=== PATIENT | female | born 1960 | race American Indian/Alaskan Native ===

== ENCOUNTER 2016-11-29 00:52 | Emergency (ER) | payer OTHER ==
[2016-11-29 01:48] LABS: Basophils % (Auto) 0.8 % (0.0-1.8); Hematocrit 39.7 % (30.3-42.9); Hemoglobin 13.1 gm/dl (10.1-14.3); Mean Corpuscular HGB Conc 33 % (30-34); Mean Corpuscular Hemoglobin 29 pg (28-32); Mean Corpuscular Volume 88 fl (79-97); Platelet Count 179 K/mm3 (140-440); Red Blood Count 4.52 M/mm3 (3.65-5.03); Red Cell Distribution Width 14.6 % (13.2-15.2); White Blood Count 6.3 K/mm3 (4.5-11.0)
[2016-11-29 02:03] LABS: BUN/Creatinine Ratio 12.5; Calcium 9.4 mg/dL (8.4-10.2); Potassium 3.6 mmol/L (3.6-5.0)
[2016-11-29] MEDS ORDERED: DELTASONE PO ONE (03:07)
[2016-11-29] MEDS ORDERED: DUONEB 0.5 MG-3 MG/3 ML SOLN IH ONE (03:07)
[2016-11-29] MEDS ORDERED: NACL 0.9% 1000 ML 1,000 ML IV ONE (03:07)
[2016-11-29] MEDS ORDERED: PROVENTIL IH ONE (03:07)
--- NOTE | 2016-11-29 03:10 | Emergency Department Report ---
ED Shortness of Breath HPI - General Chief Complaint: Upper Respiratory Infection Stated Complaint: COUGH, CONGESTION Time Seen by Provider: 11/29/16 02:57 Source: patient Mode of arrival: Ambulatory Limitations: No Limitations - History of Present Illness Initial Comments: Pt is a 56-year-old woman with a history of hypertension presenting with cough, dyspnea, sore throat for the past 3 weeks. Patient reports [facility] and prescribed a week's course of amoxicillin and inhaler with no relief. Patient then followed up with a primary care provider and was given a Z-Ede, but still reports no relief. Associated right flank pain with coughing, however, patient reports the pain was there prior to her URI sx. Otherwise no fevers, chills, FONSECA, NVD, chest pain, abd pain, travel, trauma, or sick contacts. MD Complaint: shortness of breath, cough, chest pain -: month(s) (1) - Related Data Previous Rx's Medication Instructions Recorded Last Taken Type predniSONE [Deltasone] 50 mg PO QDAY #5 tab 11/29/16 Unknown Rx Allergies Allergy/AdvReac Type Severity Reaction Status Date / Time codeine Allergy Vomiting Verified 11/29/16 01:01 ED Review of Systems ROS: Stated complaint: COUGH, CONGESTION Other details as noted in HPI Comment: All other systems reviewed and negative ED Past Medical Hx - Past Medical History Previous Medical History?: Yes Hx Hypertension: Yes - Surgical History Past Surgical History?: Yes Additional Surgical History: HEMMORHOIDECTOMY - Social History Smoking Status: Never Smoker Substance Use Type: None - Medications Home Medications: Home Medications Medication Instructions Recorded Confirmed Last Taken Type predniSONE [Deltasone] 50 mg PO QDAY #5 tab 11/29/16 Unknown Rx ED Physical Exam - General Limitations: No Limitations General appearance: alert, in no apparent distress - Head Head exam: Present: atraumatic, normocephalic - Eye Eye exam: Present: normal appearance - ENT ENT exam: Present: mucous membranes moist - Neck Neck exam: Present: normal inspection - Respiratory Respiratory exam: Present: wheezes, decreased breath sounds. Absent: respiratory distress - Cardiovascular Cardiovascular Exam: Present: regular rate, normal rhythm. Absent: systolic murmur, diastolic murmur, rubs, gallop - GI/Abdominal GI/Abdominal exam: Present: soft, normal bowel sounds. Absent: distended, tenderness, guarding, rebound - Extremities Exam Extremities exam: Present: normal inspection - Back Exam Back exam: Present: normal inspection - Neurological Exam Neurological exam: Present: alert, oriented X3 - Psychiatric Psychiatric exam: Present: normal affect, normal mood - Skin Skin exam: Present: warm, dry, intact, normal color. Absent: rash ED Course Vital Signs 11/29/16 11/29/16 11/29/16 01:01 02:25 03:45 Temperature 97.9 F Pulse Rate 82 77 Pulse Rate [ 75 Posterior Bilateral Bases ] Respiratory 18 18 Rate Respiratory 20 Rate [Posterior Bilateral Bases] Blood Pressure 151/84 Blood Pressure 142/83 [Left] O2 Sat by Pulse 98 98 Oximetry 11/29/16 11/29/16 11/29/16 04:02 04:57 06:15 Temperature 98.4 F Pulse Rate 99 H 95 H Pulse Rate [ 78 Posterior Bilateral Bases ] Respiratory 20 18 Rate Respiratory 20 Rate [Posterior Bilateral Bases] Blood Pressure Blood Pressure 156/81 143/86 [Left] O2 Sat by Pulse 98 Oximetry ED Medical Decision Making - Lab Data Result diagrams: 11/29/16 01:29 11/29/16 01:29 - Medical Decision Making Results discussed with the patient, instructed her to follow up with her PMD, continue the albuterol inhaler q4hr for wheezing and to take the prednisone for the next 5 days Critical care attestation.: If time is entered above; I have spent that time in minutes in the direct care of this critically ill patient, excluding procedure time. ED Disposition Clinical Impression: Dyspnea, Cough, URI (upper respiratory infection) Disposition: DISCHARGED TO HOME OR SELFCARE Is pt being admited?: No Condition: Stable Instructions: Upper Respiratory Infection (ED), Dyspnea (ED), Cold Symptoms (ED ) Prescriptions: predniSONE [Deltasone] 50 mg PO QDAY #5 tab Referrals: PRIMARY CARE, [Primary Care Provider] - 3-5 Days
[2016-11-29 05:12] LABS: Bilirubin,Urine NEG (Negative); Blood,Urine NEG (Negative); Ketones,Urine NEG (Negative); Leukocyte Esterase,Urine NEG (Negative); Mucus,Urine FEW /HPF; Nitrite,Urine NEG (Negative); Protein,Urine <15 mg/dL mg/dL (Negative); Urobilinogen,Urine < 2.0 mg/dL (<2.0)
[2016-11-29 06:17] VITALS: BP 143/86
--- NOTE | 2016-11-29 07:29 | XRay Report ---
CHEST 2 VIEWS INDICATION: Cough, fever, sneezing for 3 weeks. Right upper quadrant pain posteriorly. COMPARISON: None similar at this institution. FINDINGS: PA and lateral chest radiographs demonstrate normal cardiomediastinal silhouette. No pleural effusions or CHF. Slight aortic knob calcifications. Right hemidiaphragm minimally elevated. Probable cholecystectomy clips. Mild thoracic spine degenerative spurring. CONCLUSION: No acute chest process, as described. Thank you for the opportunity to participate in this patient's care.
== END 2016-11-29 06:15 | disposition home or self-care (01) ==
LOC: ED 00:52
DX: J06.9 Acute upper respiratory infection, unspecified (principal); I10 Essential (primary) hypertension; Z90.89 Acquired absence of other organs; Z88.5 Allergy status to narcotic agent
CPT/HCPCS: 36415; 71020; 80048; 81001; 85025; 87400; 94640; 96360; 99284; J7030; J7512

== ENCOUNTER 2017-12-31 09:14 | Outpatient (CLI) | payer OTHER ==
--- NOTE | 2018-01-01 09:32 | Mammography Report ---
BILATERAL DIGITAL SCREENING MAMMOGRAM with CAD : 12/31/17 09:14:00 CLINICAL: Routine screening. COMPARISON:None available. FINDINGS: The breasts are heterogeneously dense, which may obscure small masses. No mass, architectural distortion or suspicious calcifications. IMPRESSION: No mammographic evidence of malignancy. BI-RADS CATEGORY: 2 -- Benign RECOMMENDATION: Routine mammographic screening in one year. COMMENT: Patient follow-up letters are generated by our [employer] application.
== END 2017-12-31 09:15 | disposition home or self-care (01) ==
LOC: SPVWC 09:14
PROVIDERS: ATTEND Internal Medicine
DX: Z12.31 Encounter for screening mammogram for malignant neoplasm of breast (principal)
CPT/HCPCS: 77067

== ENCOUNTER 2019-01-22 08:34 | Outpatient (CLI) | payer OTHER ==
--- NOTE | 2019-01-22 14:16 | Mammography Report ---
BILATERAL DIGITAL SCREENING MAMMOGRAM with CAD: 01/22/19 08:34:00 CLINICAL: Routine screening. COMPARISON:12/31/17 FINDINGS: The breasts are heterogeneously dense, which may obscure small masses. A right asymmetry on the MLO view requires additional imaging.No architectural distortion or suspicious calcifications.The left breast is negative. IMPRESSION: Right asymmetry requiring further workup. BI-RADS CATEGORY: 0 -- Additional Imaging Evaluation Required RECOMMENDATION: Recall for right mediolateral and spot compression MLO views and right breast ultrasound if needed. COMMENT: 1. Dense breast tissue, i.e., adenosis, fibrocystic changes, etc., may obscure an underlying neoplasm. 2. Approximately 10% of cancers are not detected with mammography. 3. A negative mammography report should not delay biopsy if a clinically suspicious mass is present. COMMENT: Patient follow-up letters are generated via our [employer] application.
== END 2019-01-22 08:35 | disposition home or self-care (01) ==
LOC: SPVWC 08:34
PROVIDERS: ATTEND Internal Medicine
DX: Z12.31 Encounter for screening mammogram for malignant neoplasm of breast (principal); I10 Essential (primary) hypertension; Z90.710 Acquired absence of both cervix and uterus
CPT/HCPCS: 77067